=== PATIENT | female | born 1930 | race Caucasian/White ===

== ENCOUNTER 2019-08-02 08:23 | Emergency (ER) | payer MEDICARE, OTHER ==
--- NOTE | 2019-08-02 09:09 | RADIOLOGY REPORT (SQ) ---
EXAM DESCRIPTION: KNEE RIGHT 4 VIEWS COMPLETED DATE/TIME: 08/02/2019 8:51 am REASON FOR STUDY: fall; pain with ambulating COMPARISON: None. NUMBER OF VIEWS: Four views. TECHNIQUE: AP, lateral, and both oblique radiographic images acquired of the right knee. LIMITATIONS: None. FINDINGS: MINERALIZATION: Normal. BONES: No acute fracture dislocation. 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 JOINT: Joint space narrowing in all compartments with calcification present consistent with CPPD. SOFT TISSUES: No soft tissue swelling. No radio-opaque foreign body. OTHER: No other significant finding. IMPRESSION: 1. 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 Chondrosarcoma cannot be excluded but is thought to be less likely. 2. 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 TECHNICAL DOCUMENTATION: JOB ID: [id number] [employer]- All Rights Reserved Reading location - IP/workstation name: [email or web address]
--- NOTE | 2019-08-02 09:18 | ER Document Report ---
ED General - General Chief Complaint: Fall Stated Complaint: FALL/LEG PAIN Time Seen by Provider: 08/02/19 08:53 Primary Care Provider: BASSEM CHAMBERS JR, MD [Primary Care Provider] - Follow up in 3-5 days Notes: Patient is an 89-year-old female who presents to the emergency department with a chief complaint of right knee pain. She fell last night around 1900. She states that she was getting up from the couch to get her nightgown on and normally she gets help from her family, but she thought she could do with her own. She ended up going to sit back down and the chair was too low and she lost her balance and fell on her right knee. Denies any shortness of breath, difficulty breathing, urinary symptoms, abdominal pain or any other symptoms. Patient saw her primary care provider and had urinalysis done yesterday. It was also sent for culture. Denies hitting her head, denies any paresthesias. - Related Data Allergies/Adverse Reactions: ondansetron [From Zofran] Allergy (Mild, Verified 08/02/19 12:03) Past Medical History - General Information source: Patient, Relative - Social History Smoking Status: Never Smoker Family History: Reviewed & Not Pertinent Patient has suicidal ideation: No Patient has homicidal ideation: No - Past Medical History Cardiac Medical History: Reports: Hx Hypercholesterolemia, Hx Hypertension Review of Systems - Review of Systems Notes: REVIEW OF SYSTEMS: CONSTITUTIONAL : Denies recent illness. Denies recent unintentional weight loss. Denies fever, chills, or sweats. EENT: Denies eye, ear, throat, or mouth pain, discharge, or symptoms. Denies nasal or sinus congestion. CARDIOVASCULAR: Denies chest pain. RESPIRATORY: Denies shortness of breath, cough, congestion, difficulty breathing, or wheezing. GASTROINTESTINAL: Denies nausea, vomiting, and diarrhea. Denies abdominal pain. Denies constipation. GENITOURINARY: Denies difficulty urinating, burning, blood in urine, urgency or frequency. MUSCULOSKELETAL: See HPI. SKIN: Denies rash, itchiness, or lesions HEMATOLOGIC : Denies easy bruising or bleeding. LYMPHATIC: Denies swollen, painful, enlarged glands. NEUROLOGICAL: Denies no numbness or tingling denies weakness. Denies headache. Denies altered mental status. Denies alteration in speech. PSYCHIATRIC: Denies stress, anxiety, alteration in sleep patterns, or depression. All other systems reviewed and negative. Physical Exam - Vital signs Vitals: Temp Pulse Resp BP Pulse Ox 97.8 F 89 16 148/101 H 97 08/02/19 08:23 08/02/19 08:23 08/02/19 08:23 08/02/19 08:23 08/02/19 08:23 - Notes Notes: PHYSICAL EXAMINATION: GENERAL: Appears well, healthy, well-nourished, no acute distress. HEAD: Normocephalic, atraumatic. EYES: PERRL, conjunctiva normal, all extraocular movements intact, sclera nonicteric ENT: Moist mucous membranes. NECK: Supple, no noticeable swelling, redness, rash. Normal range of motion. LUNGS: Equal breath sounds bilaterally and clear to auscultation. No wheezes rales or rhonchi. CARDIOVASCULAR: S1-S2, regular rate, regular rhythm. Radial pulses 2+, normal. ABDOMEN: Normoactive bowel sounds. Soft, nontender, no guarding, no rebound tenderness, and no masses palpated. EXTREMITIES: Decreased range of motion to right knee. Right knee tenderness. PSYCH: Normal mood, normal affect. SKIN: Warm, dry. No rash, lesions, ulcerations noted. Normal skin turgor. Course - Re-evaluation Re-evalutation: 08/02/19 11:37 There is no acute fracture noted. I had Dr. Keller spoke with the patient and her daughter. He agrees that there is no need for an MRI at this time. I also had COTY Bennett, case coordinator evaluate the patient as far as home needs go and physical therapy will be set up for her tomorrow. I will order her a walker. Patient will also be transferred to her house. No vascular compromise noted. Follow-up precautions were given. Verbal discharge instructions were given to the patient. They verbalized understanding. They are stable for discharge. - Vital Signs Vital signs: Temp Pulse Resp BP Pulse Ox 98.4 F 95 16 181/91 H 96 08/02/19 14:43 08/02/19 14:43 08/02/19 14:43 08/02/19 14:43 08/02/19 14:43 Discharge - Discharge Clinical Impression: Fall Qualifiers: Encounter type: initial encounter Qualified Code(s): W19.XXXA - Unspecified fall, initial encounter Left knee pain Qualifiers: Chronicity: acute Qualified Code(s): M25.562 - Pain in left knee Condition: Stable Disposition: HOME, SELF-CARE Additional Instructions: You were seen today in the emergency department for right knee pain after a fall. There is no fracture at this time. Please follow-up with your primary care doctor in regards to this visit. You will also have physical therapy set up for you. They should see you tomorrow. You are also being sent home with a prescription for a walker. Please use the walker and bear weight as tolerated. You can take your tramadol and from home for pain. Make sure you take it every 6 hours for the next few days to help with your pain. Referrals: TRISH BAXTER,BASSEM Stephens MD [Primary Care Provider] - Follow up in 3-5 days
[2019-08-02] MEDS ORDERED: TRAMADOL HCL 50 MG TABLET PO ONE (10:03)
[2019-08-02] MEDS ORDERED: ONDANSETRON HCL INJ/PF 4 MG/2 ML SDV IV ONE (11:43)
[2019-08-02 14:51] VITALS: BP 181/91
[2019-08-02] MEDS ORDERED: LOSARTAN POTASSIUM 50 MG TABLET PO ONE (14:58)
[2019-08-03] MEDS ORDERED: ACETAMINOPHEN 325 MG TABLET PO PRN (17:40)
[2019-08-03] MEDS ORDERED: ZOLPIDEM TARTRATE 5 MG TABLET PO PRN (17:40)
[2019-08-03] MEDS ORDERED: ONDANSETRON 4 MG TAB.RAPDIS PO PRN (17:40)
[2019-08-03] MEDS ORDERED: NORMAL SALINE 1000 ML 1,000 ML IV PRN (17:40)
[2019-08-03] MEDS ORDERED: OXYCODONE-ACETAMINOPHEN 5-325 MG TABLET PO PRN (17:40)
[2019-08-03] MEDS ORDERED: ONDANSETRON HCL INJ/PF 4 MG/2 ML SDV IV PRN (17:40)
[2019-08-03] MEDS ORDERED: ENOXAPARIN SODIUM INJ 30 MG/0.3 ML DISP.SYRIN SUBCUT SCH (18:00)
[2019-08-03] MEDS ORDERED: PROMETHAZINE HCL INJ 25 MG/1 ML VIAL IV PRN (18:00)
[2019-08-03 18:32] LABS: ALBUMIN 3.4 g/dL (3.5-5.0); ALKALINE PHOSPHATASE 74 U/L (38-126); ANION GAP 10 (5-19); ASPARTATE AMINO TRANSFERASE 23 U/L (14-36); BILIRUBIN,DIRECT 0.2 mg/dL (0.0-0.4); BILIRUBIN,TOTAL 1.4 mg/dL (0.2-1.3); BLOOD UREA NITROGEN 15 mg/dL (7-20); CALCIUM 9.7 mg/dL (8.4-10.2); CARBON DIOXIDE 24 mmol/L (22-30); CHLORIDE 99 mmol/L (98-107); GLUCOSE 89 mg/dL (75-110); POTASSIUM 4.3 mmol/L (3.6-5.0); TOTAL PROTEIN 6.4 g/dL (6.3-8.2)
[2019-08-03] MEDS ORDERED: LOSARTAN POTASSIUM 50 MG TABLET PO SCH (22:00)
[2019-08-03] MEDS ORDERED: BUPROPION HCL 100 MG TABLET PO SCH (22:00)
[2019-08-03] MEDS ORDERED: FAMOTIDINE 20 MG TABLET PO SCH (22:00)
[2019-08-04 04:54] LABS: ABSOLUTE BASOPHILS # (AUTO) 0.1 10^3/uL (0.0-0.2); ABSOLUTE EOSINOPHILS # (AUTO) 0.5 10^3/uL (0.0-0.6); ABSOLUTE LYMPHOCYTES (AUTO) 1.1 10^3/uL (0.5-4.7); ABSOLUTE MONOCYTES (AUTO) 1.1 10^3/uL (0.1-1.4); BASOPHILS % (AUTO) 0.8 % (0-2); EOSINOPHILS % (AUTO) 6.1 % (0-6); HEMATOCRIT 42.4 % (36.0-47.0); HEMOGLOBIN 14.5 g/dL (12.0-15.5); LYMPHOCYTES % (AUTO) 12.4 % (13-45); MEAN CORPUSCULAR HGB CONC 34.3 g/dL (32.0-36.0); MEAN CORPUSCULAR VOLUME 96 fl (80-97); MONOCYTES % (AUTO) 12.3 % (3-13); PLATELET COUNT 212 10^3/uL (150-450); RED BLOOD COUNT 4.41 10^6/uL (3.72-5.28); RED CELL DISTRIBUTION WIDTH 12.7 % (11.5-14.0); SEGMENTED NEUTROPHILS % (AUTO) 68.4 % (42-78); TOTAL CELLS COUNTED % (AUTO) 100 %; WHITE BLOOD COUNT 8.8 10^3/uL (4.0-10.5)
== END 2019-08-02 15:13 | disposition home or self-care (01) ==
LOC: ER 08:23
DX: M25.561 Pain in right knee (principal); M25.562 Pain in left knee; W19.XXXA Unspecified fall, initial encounter; Y93.89 Activity, other specified; I10 Essential (primary) hypertension; Z88.8 Allergy status to other drugs, medicaments and biological substances
CPT/HCPCS: 99284; 96374; 36415; 83735; 84443; 85025; 85730; 87070; 73564; L1830; A9270 ×2; J2405

== ENCOUNTER 2019-08-03 15:21 | Inpatient (IN) | payer MEDICARE, OTHER ==
--- NOTE | 2019-08-03 16:59 | RADIOLOGY REPORT (SQ) ---
EXAM DESCRIPTION: HIP RIGHT AP/LATERAL COMPLETED DATE/TIME: 08/03/2019 4:06 pm REASON FOR STUDY: Fall; unable to ambulate COMPARISON: 01/30/2009 NUMBER OF VIEWS: Two views. TECHNIQUE: AP pelvis and additional frog-leg view of the right hip. LIMITATIONS: None. FINDINGS: MINERALIZATION: Normal. RIGHT HIP: Sub capital right hip fracture with resulting varus deformity. LEFT HIP: No fracture or dislocation. No worrisome bone lesions. PUBIS AND ISCHIUM: No fracture. PELVIS: No fracture. SACRUM: No fracture or dislocation. No worrisome bone lesions. LOWER LUMBAR SPINE: No fracture or dislocation. No worrisome bone lesions. No significant disc disea se. SOFT TISSUES: Possible right inguinal hernia. OTHER: No other significant finding. IMPRESSION: Subcapital right hip fracture. TECHNICAL DOCUMENTATION: JOB ID: [id number] [employer]- All Rights Reserved Reading location - IP/workstation name: [email or web address]
--- NOTE | 2019-08-03 17:15 | ER Document Report ---
ED General - General Chief Complaint: Hip Pain Stated Complaint: FALL/HIP PAIN Time Seen by Provider: 08/03/19 16:03 Notes: 89-year-old female presents emergency department stating that she fell yesterday and landed directly on her right knee, had negative knee x-rays here and was discharged home in a knee immobilizer. Daughter states that the patient has been unable to ambulate or even sit up since then due to continuing pain. Has severe pain when bending at the hip. 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 TRAVEL OUTSIDE OF THE [place] IN LAST 30 DAYS: No - Related Data Allergies/Adverse Reactions: ondansetron [From Zofran] Allergy (Mild, Verified 08/02/19 12:03) Past Medical History - General Information source: Patient, Relative - Social History Smoking Status: Never Smoker Chew tobacco use (# tins/day): No Frequency of alcohol use: None Drug Abuse: None Family History: Reviewed & Not Pertinent Patient has suicidal ideation: No Patient has homicidal ideation: No - Past Medical History Cardiac Medical History: Reports: Hx Hypercholesterolemia, Hx Hypertension Past Surgical History: Reports: Hx Genitourinary Surgery - bladder tuck Review of Systems - Review of Systems Constitutional: No symptoms reported Musculoskeletal: See HPI -: Yes All other systems reviewed and negative Physical Exam - Vital signs Vitals: Resp BP Pulse Ox 12 137/72 H 96 08/03/19 15:31 08/03/19 15:31 08/03/19 15:31 Interpretation: Normal - Notes Notes: GENERAL: Alert, interacts well. No acute distress. HEAD: Normocephalic, atraumatic EYES: Pupils equal, round and reactive to light, extraocular movements intact. ENT: Oral mucosa moist, tongue midline. NECK: Full range of motion, supple, trachea midline. LUNGS: Clear to auscultation bilaterally, no wheezes, rales or rhonchi, no respiratory distress. HEART: Regular rate and rhythm, no murmurs, gallops, rubs. ABDOMEN: Soft, nontender, nondistended, bowel sounds present in all 4 quadrants. EXTREMITIES: able to wiggle toes, complains of pain with flexion of knee and any movement of the right hip, right hip is not directly tender to palpation, no edema, radial and dorsalis pedis pulses 2/4 bilaterally. No cyanosis. NEUROLOGICAL: Alert and oriented x3, normal speech, sensation intact to the bilateral feet. PSYCH: Normal mood, normal affect. SKIN: Warm, Dry, normal turgor, medial ecchymoses noted to the right knee. Course - Re-evaluation Re-evalutation: 08/03/19 17:15 X-ray shows subcapital fracture of the right hip. Discussed with Dr. Russo who states that he will do the surgery tomorrow when she is medically cleared, discussed with Dr. Marie who would like blood work back before he accepts to his service. Currently trying to update Dr. Gibbs, her PCP, per patient request. 08/03/19 17:20 Dr. Gibbs will fax a copy of her latest office visit. 08/03/19 17:[address] Oliva the anesthesiologist monkey trainer, states that they do not have the staffing to do a nerve block for her right now. 08/03/19 18:03 Dr. Marie/Newton Chua have accepted the the patient and Newton Chua has already e valuated the patient. - Vital Signs Vital signs: Temp Pulse Resp BP Pulse Ox 98.4 F 13 147/81 H 94 08/03/19 15:40 08/03/19 17:02 08/03/19 17:02 08/03/19 17:02 - Laboratory Result Diagrams: 08/03/19 17:07 08/03/19 17:07 - EKG Interpretation by Me Additional EKG results interpreted by me: 08/03/19 18:04 EKG shows sinus rhythm at a rate of 88, right bundle branch block, left posterior fascicular block, no STEMI per my interpretation. Discharge - Discharge Clinical Impression: Closed right hip fracture Qualifiers: Encounter type: initial encounter Qualified Code(s): S72.001A - Fracture of unspecified part of neck of right femur, initial encounter for closed fracture Condition: Stable Disposition: ADMITTED INPATIENT Admitting Provider: Cynthia (Hospitalist) Unit Admitted: Surgical Floor
[2019-08-03 17:18] LABS: ABSOLUTE BASOPHILS # (AUTO) 0.1 10^3/uL (0.0-0.2); ABSOLUTE EOSINOPHILS # (AUTO) 0.5 10^3/uL (0.0-0.6); ABSOLUTE LYMPHOCYTES (AUTO) 1.2 10^3/uL (0.5-4.7); ABSOLUTE MONOCYTES (AUTO) 1.1 10^3/uL (0.1-1.4); ABSOLUTE NEUT (AUTO) 5.7 10^3/uL (1.7-8.2); BASOPHILS % (AUTO) 0.8 % (0-2); EOSINOPHILS % (AUTO) 5.9 % (0-6); HEMATOCRIT 44.6 % (36.0-47.0); HEMOGLOBIN 15.1 g/dL (12.0-15.5); LYMPHOCYTES % (AUTO) 13.6 % (13-45); MEAN CORPUSCULAR HEMOGLOBIN 32.7 pg (27.0-33.4); MEAN CORPUSCULAR HGB CONC 33.9 g/dL (32.0-36.0); MEAN CORPUSCULAR VOLUME 97 fl (80-97); MONOCYTES % (AUTO) 12.5 % (3-13); PLATELET COUNT 220 10^3/uL (150-450); RED BLOOD COUNT 4.62 10^6/uL (3.72-5.28); RED CELL DISTRIBUTION WIDTH 12.8 % (11.5-14.0); SEGMENTED NEUTROPHILS % (AUTO) 67.2 % (42-78); TOTAL CELLS COUNTED % (AUTO) 100 %; WHITE BLOOD COUNT 8.5 10^3/uL (4.0-10.5)
[2019-08-03 17:32] LABS: INTERNATIONAL RATION (INR) 1.02; PROTHROMBIN TIME 13.5 SEC (11.4-15.4)
[2019-08-03 17:33] LABS: PARTIAL THROMBOPLASTIN TIME 34.4 SEC (23.5-35.8)
[2019-08-03] MEDS ORDERED: ACETAMINOPHEN 325 MG TABLET PO PRN (18:17)
[2019-08-03] MEDS ORDERED: ZOLPIDEM TARTRATE 5 MG TABLET PO PRN (18:17)
[2019-08-03] MEDS ORDERED: PROMETHAZINE HCL INJ 25 MG/1 ML VIAL IV PRN (18:17)
--- NOTE | 2019-08-03 18:17 | PDOC H&P ---
History of Present Illness Admission Date/PCP: BASSEM CHAMBERS JR, MD 08/03/2019 admitted for right hip fracture History of Present Illness: ROYCE PIERCE is a 89 year old female who was admitted through the emergency room today on 08/03/2019 for right subcapital hip fracture. The history begins Wednesday night around 6 PM when the patient tripped and fell fracturing her right hip. According to the daughter EMS came in evidently after some discussion did not feel like the patient needed to be transported to the ER the patient's daughter stated that yesterday morning when she got up her right hip was still hurting her severely so she did come to the emergency room and they treated her for right leg pain but no x-rays were done of the right hip. I sent her home with a right leg splint.. Last night she was hurting so bad she did not have adequate pain medication so her primary care provider Dr. Ana burgos got her some Percocet. The daughter states that she took 1 about every 4-6 hours with good relief of her right hip pain. Morning her right hip was still hurting so bad that they came back to the emergency room and today's x-ray of the right hip shows a subcapital right hip fracture. Patient's other medical conditions include hypertension, she has what sounds to be a reducible right inguinal hernia, either anxiety or depression, and hyperlipidemia. Patient has had 5 vaginal deliveries in her lifetime, was living alone up until recently but now has moved in with her daughter and had a good quality of life. Surgery plans on repairing the right hip tomorrow they will discuss risk and benefits with the patient and family. I did tell the patient and her daughter that at at the age of 89 she does carry a higher risk of for general anesthesia. They were aware of this and had their questions answered. Past Medical History Cardiac Medical History: Reports: Hyperlipidema, Hypertension Pulmonary Medical History: Reports: None Neurological Medical History: Reports: Other - Chronic right foot drop for many years GI Medical History: Reports: Other - Reducible abdominal inguinal hernia Social History Smoking Status: Never Smoker - Advance Directive Resuscitation Status: Full Code Family History Family History: Reviewed & Not Pertinent Parental Family History Reviewed: No Children Family History Reviewed: No Sibling(s) Family History Reviewed.: No Medication/Allergy Home Medications: Bupropion HCl [Bupropion Xl] 150 mg PO Q12 10/02/19 Losartan Potassium 100 mg PO DAILY 08/02/19 Rosuvastatin Calcium 20 mg PO QHS 08/02/19 Zolpidem Tartrate [Ambien 5 mg Tablet] 5 mg PO HSP PRN MDD 10 MG 08/02/19 Allergies/Adverse Reactions: ondansetron [From Zofran] Allergy (Mild, Verified 08/02/19 12:03) Review of Systems Constitutional: ABSENT: chills, fever(s), headache(s), weight gain, weight loss Eyes: ABSENT: visual disturbances Cardiovascular: ABSENT: chest pain, dyspnea on exertion, edema, orthropnea, palpitations Respiratory: ABSENT: cough, hemoptysis Gastrointestinal: PRESENT: other - Reducible abdominal right inguinal hernia Neurological: ABSENT: abnormal gait, abnormal speech, confusion, dizziness, focal weakness, syncope Psychiatric: ABSENT: anxiety, depression, homidical ideation, suicidal ideation Physical Exam Vital Signs: Temp Pulse Resp BP Pulse Ox 98.4 F 13 147/81 H 94 08/03/19 15:40 08/03/19 17:02 08/03/19 17:02 08/03/19 17:02 Intake & Output 08/02/19 08/03/19 08/04/19 06:59 06:59 06:59 Weight 54.3 kg General appearance: PRESENT: no acute distress, well-developed, well-nourished, other - At bedrest patient has no pain Respiratory exam: PRESENT: clear to auscultation lisa. ABSENT: rales, rhonchi, wheezes Cardiovascular exam: PRESENT: RRR. ABSENT: diastolic murmur, rubs, systolic murmur GI/Abdominal exam: PRESENT: normal bowel sounds, soft. ABSENT: distended, guarding, mass, organolmegaly, rebound, tenderness Musculoskeletal exam: PRESENT: other - Right leg is shorter than the left leg Neurological exam: PRESENT: alert, awake, oriented to person, oriented to place, oriented to time, oriented to situation, CN II-XII grossly intact, other - Patient has a right foot drop that is chronic. ABSENT: motor sensory deficit Psychiatric exam: PRESENT: appropriate affect, normal mood, other - Very pleasant. ABSENT: homicidal ideation, suicidal ideation Results Laboratory Results: 08/03/19 17:07 08/03/19 17:07 08/03/19 08/03/19 17:07 17:07 WBC 8.5 RBC 4.62 Hgb 15.1 Hct 44.6 MCV 97 MCH 32.7 MCHC 33.9 RDW 12.8 Plt Count 220 Seg Neutrophils % 67.2 Sodium Cancelled Potassium Cancelled Chloride Cancelled Carbon Dioxide Cancelled Anion Gap Cancelled BUN Cancelled Creatinine Cancelled Est GFR ( Amer) Cancelled Est GFR (Non-Af Amer) Cancelled Glucose Cancelled Calcium Cancelled Total Bilirubin Cancelled AST Cancelled Alkaline Phosphatase Cancelled Total Protein Cancelled Albumin Cancelled Impressions: Hip/Pelvis X-Ray 08/03/19 00:00 IMPRESSION: Subcapital right hip fracture. Assessment and Plan - Diagnosis (1) Subcapital fracture of right hip Is this a current diagnosis for this admission?: Yes (2) Hypertension Is this a current diagnosis for this admission?: Yes (3) Hyperlipidemia Is this a current diagnosis for this admission?: Yes (4) Right inguinal hernia Is this a current diagnosis for this admission?: Yes (5) Fall Qualifiers: Encounter type: initial encounter Qualified Code(s): W19.XXXA - Unspecified fall, initial encounter Is this a current diagnosis for this admission?: Yes - Plan Summary Summary: 08/03/2019 She will be seen by orthopedic surgery and is tentatively plan for repair of right hip fracture tomorrow morning.. With the information I have so far patient appears to be medically clear for general anesthesia. Patient has a right bundle branch block on her EKG with no previous EKGs to compare to. Patient denies previous cardiac history. We will follow the patient medically with orthopedics. - Time Time Spent with patient: 35 or more minutes
--- NOTE | 2019-08-03 19:02 | RADIOLOGY REPORT (SQ) ---
EXAM DESCRIPTION: CHEST SINGLE VIEW COMPLETED DATE/TIME: 08/03/2019 6:22 pm REASON FOR STUDY: preop COMPARISON: None. EXAM PARAMETERS: NUMBER OF VIEWS: One view. TECHNIQUE: Single frontal radiographic view of the chest acquired. RADIATION DOSE: NA LIMITATIONS: None. FINDINGS: LUNGS AND PLEURA: No opacities, masses or pneumothorax. No pleural effusion. MEDIASTINUM AND HILAR STRUCTURES: No masses. Contour normal. HEART AND VASCULAR STRUCTURES: Heart normal in size. Normal vasculature. BONES: No acute findings. HARDWARE: None in the chest. OTHER: No other significant finding. IMPRESSION: NO ACUTE RADIOGRAPHIC FINDING IN THE CHEST. TECHNICAL DOCUMENTATION: JOB ID: [id number] [employer]- All Rights Reserved Reading location - IP/workstation name: [email or web address]
[2019-08-03] MEDS: ENOXAPARIN SODIUM INJ 30 MG/0.3 ML DISP.SYRIN SUBCUT SCH (19:43)
[2019-08-03] MEDS: OXYCODONE-ACETAMINOPHEN 5-325 MG TABLET PO PRN (19:56)
[2019-08-03] MEDS: LOSARTAN POTASSIUM 50 MG TABLET PO SCH (21:47)
[2019-08-03] MEDS: FAMOTIDINE 20 MG TABLET PO SCH (21:48)
[2019-08-03] MEDS: NORMAL SALINE 1000 ML 1,000 ML IV PRN (21:48)
[2019-08-03] MEDS: BUPROPION HCL 100 MG TABLET PO SCH (21:48)
--- NOTE | 2019-08-03 21:50 | EKG REPORT ---
SEVERITY:- ABNORMAL ECG - SINUS RHYTHM RBBB AND LPFB : Confirmed by: Eleanor Salmeron MD 03-Aug-2019 21:49:27
[2019-08-03] MEDS ORDERED: FAMOTIDINE 20 MG TABLET PO SCH (22:00)
[2019-08-04 05:08] LABS: ALBUMIN 3.5 g/dL (3.5-5.0); ALKALINE PHOSPHATASE 76 U/L (38-126); ANION GAP 11 (5-19); ASPARTATE AMINO TRANSFERASE 22 U/L (14-36); BILIRUBIN,DIRECT 0.2 mg/dL (0.0-0.4); BILIRUBIN,TOTAL 1.5 mg/dL (0.2-1.3); BLOOD UREA NITROGEN 16 mg/dL (7-20); CALCIUM 9.6 mg/dL (8.4-10.2); CARBON DIOXIDE 23 mmol/L (22-30); CHLORIDE 100 mmol/L (98-107); GLUCOSE 78 mg/dL (75-110); POTASSIUM 4.2 mmol/L (3.6-5.0); TOTAL PROTEIN 6.4 g/dL (6.3-8.2)
[2019-08-04] MEDS: OXYCODONE-ACETAMINOPHEN 5-325 MG TABLET PO PRN ×3 (07:42→22:32)
[2019-08-04] MEDS ORDERED: PHENYLEPHRINE HCL INJ/PF 10 MG/1 ML SDV ONE (10:13)
--- NOTE | 2019-08-04 10:41 | XCELERA REPORT ---
[address] [address] Transthoracic Echocardiogram Report Name: ROYCE PIERCE Age: 89 yrs Gender: Female : 1930 Patient Status: Inpatient Patient Location: [facility]^A Study Date: 08/04/2019 09:04 AM Height: 60 in Weight: 117 lb BSA: 1.5 m2 Procedure: A complete two-dimensional transthoracic echocardiogram was performed (2D, M-mode, spectral and color flow Doppler). The study was technically adequate with some images being suboptimal in quality. Reason For Study: preop Ordering Physician: GIANA BARNETT Performed By: Armando Galeano Interpretation Summary The left ventricular ejection fraction is normal. There is mild concentric left ventricular hypertrophy. The left ventricle is grossly normal size. Doppler measurements suggest pseudonormalized left ventricular relaxation, which is associated with grade II/IV or mild to moderate diastolic dysfunction Wall motion cannot be accurately commented on, but no definite regional wall motion abnormalities noted. The right ventricular systolic function is normal. The left atrium is mildly dilated. The right atrium is normal in size There is a trace amount of mitral regurgitation There is no mitral valve stenosis. There is no aortic valve stenosis No aortic regurgitation is present. There is a trace or physiologic amount of tricuspid regurgitation Tricuspid regurgitation jet envelope not well defined to measure RV systolic pressure accurately. There is no pericardial effusion. MMode/2D Measurements & Calculations RVDd: 3.6 cm LVIDd: 4.0 cm FS: 33.6 % Ao root diam: 2.6 cm IVSd: 0.94 cm LVIDs: 2.6 cm EDV(Teich): 68.2 ml Ao root area: 5.3 cm2 LVPWd: 0.90 cm ESV(Teich): 25.3 ml LA dimension: 2.7 cm EF(Teich): 62.9 % Doppler Measurements & Calculations MV E max maria esther: MV P1/2t max maria esther: Ao V2 max: LV V1 max P.7 cm/sec 67.3 cm/sec 138.5 cm/sec 4.9 mmHg MV A max maria esther: MV P1/2t: 61.9 msec Ao max PG: LV V1 max: 108.1 cm/sec MVA(P1/2t): 3.6 cm2 7.7 mmHg 111.1 cm/sec MV E/A: 0.58 MV dec slope: LV dP/dt: 4544 mmHg/s 318.6 cm/sec2 MV dec time: 0.16 sec PA V2 max: PI end-d maria esther: TR max maria esther: MV P1/2t-pr_phl: 95.3 cm/sec 77.6 cm/sec 301.6 cm/sec 61.9 msec PA max P.6 mmHg TR max P.4 mmHg Left Ventricle The left ventricle is grossly normal size. There is mild concentric left ventricular hypertrophy. The left ventricular ejection fraction is normal. Doppler measurements suggest pseudonormalized left ventricular relaxation, which is associated with grade II/IV or mild to moderate diastolic dysfunction. Wall motion cannot be accurately commented on, but no definite regional wall motion abnormalities noted. Right Ventricle The right ventricle is grossly normal size. There is normal right ventricular wall thickness. The right ventricular systolic function is normal. Atria The right atrium is normal in size. The left atrium is mildly dilated. Interarterial septum not well visualized and not well dopplered. Cannot comment on ASD/PFO presence. Mitral Valve The mitral valve leaflets are sclerotic, but show no functional abnormalities. There is no mitral valve stenosis. There is a trace amount of mitral regurgitation. Aortic Valve The aortic valve is not well visualized secondary to technical limitations. The aortic valve opens well. There is no aortic valve stenosis. No aortic regurgitation is present. Tricuspid Valve The tricuspid valve is not well visualized, but is grossly normal. There is no tricuspid stenosis. There is a trace or physiologic amount of tricuspid regurgitation. Tricuspid regurgitation jet envelope not well defined to measure RV systolic pressure accurately. Pulmonic Valve The pulmonic valve is not well visualized. Great Vessels The aortic root is not well visualized but is probably normal size. The inferior vena cava appeared normal and decreased > 50% with respiration (RAP 5-10 mmHg). Effusions There is no pericardial effusion. : GIANA BARNETT Shyamal
[2019-08-04] MEDS: LOSARTAN POTASSIUM 50 MG TABLET PO SCH ×2 (10:43→22:32)
[2019-08-04] MEDS: DOCUSATE SODIUM 100 MG CAPSULE PO SCH (10:43)
[2019-08-04] MEDS: ENOXAPARIN SODIUM INJ 30 MG/0.3 ML DISP.SYRIN SUBCUT SCH (10:43)
[2019-08-04 11:04] LABS: APPEARANCE,URINE CLOUDY; BILIRUBIN,URINE NEGATIVE (NEGATIVE); COLOR,URINE AMBER; GLUCOSE, URINE NEGATIVE (NEGATIVE); KETONES,URINE 20 mg/dL (NEGATIVE); LEUKOCYTE ESTERASE,URINE LARGE (NEGATIVE); NITRITE,URINE NEGATIVE (NEGATIVE); PROTEIN,URINE 30 mg/dL (NEGATIVE); URINE SPECIFIC GRAVITY 1.023
--- NOTE | 2019-08-04 11:07 | PDOC PROGRESS REPORT ---
Subjective Progress Note for:: 08/04/19 Subjective:: 08/04/19 patient was admitted yesterday with a fractured right hip patient is medically stable. Patient is for orthopedic repair today fractured right hip Echocardiogram done today shows no significant cardiac disease normal ejection fracture. Patient will probably have spinal anesthesia. Reason For Visit: SUBCAPITAL RIGHT HIP FRACTURE, HYPERTENSION, Physical Exam Vital Signs: Temp Pulse Resp BP Pulse Ox 98.2 F 95 16 143/89 H 93 08/04/19 08:02 08/04/19 08:02 08/04/19 08:02 08/04/19 08:02 08/04/19 08:02 Intake & Output 08/03/19 08/04/19 08/05/19 06:59 06:59 06:59 Intake Total 110 Output Total 220 Balance -110 Weight 53.2 kg General appearance: PRESENT: no acute distress Respiratory exam: PRESENT: clear to auscultation lisa. ABSENT: rales, rhonchi, wheezes Cardiovascular exam: PRESENT: RRR. 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 ABSENT: motor sensory deficit Psychiatric exam: PRESENT: appropriate affect, normal mood, other - Very pleasant. Good pain management on Percocet. ABSENT: homicidal ideation, suicidal ideation Results Laboratory Results: 08/03/19 17:07 08/04/19 03:45 08/03/19 08/03/19 08/04/19 17:07 17:07 03:45 WBC 8.5 RBC 4.62 Hgb 15.1 Hct 44.6 MCV 97 MCH 32.7 MCHC 33.9 RDW 12.8 Plt Count 220 Seg Neutrophils % 67.2 Sodium Cancelled 133.8 L Potassium Cancelled 4.2 Chloride Cancelled 100 Carbon Dioxide Cancelled 23 Anion Gap Cancelled 11 BUN Cancelled 16 Creatinine Cancelled 0.84 Est GFR ( Amer) Cancelled > 60 Est GFR (Non-Af Amer) Cancelled Glucose Cancelled 78 Calcium Cancelled 9.6 Total Bilirubin Cancelled 1.5 H AST Cancelled 22 Alkaline Phosphatase Cancelled 76 Total Protein Cancelled 6.4 Albumin Cancelled 3.5 Impressions: Chest X-Ray 08/03/19 00:00 IMPRESSION: NO ACUTE RADIOGRAPHIC FINDING IN THE CHEST. Hip/Pelvis X-Ray 08/03/19 00:00 IMPRESSION: Subcapital right hip fracture. Assessment and Plan - Diagnosis (1) Subcapital fracture of right hip Is this a current diagnosis for this admission?: Yes (2) Hypertension Is this a current diagnosis for this admission?: Yes (3) Hyperlipidemia Is this a current diagnosis for this admission?: Yes (4) Right inguinal hernia Is this a current diagnosis for this admission?: Yes (5) Fall Qualifiers: Encounter type: initial encounter Qualified Code(s): W19.XXXA - Unspecified fall, initial encounter Is this a current diagnosis for this admission?: Yes - Plan Summary Summary: 08/03/2019 She will be seen by orthopedic surgery and is tentatively plan for repair of right hip fracture tomorrow morning.. With the information I have so far patient appears to be medically clear for general anesthesia. Patient has a right bundle branch block on her EKG with no previous EKGs to compare to. Patient denies previous cardiac history. We will follow the patient medically with orthopedics. 08/04/2019 patient had a good night with adequate pain management on 1 Percocet only. Patient for repair of fractured right hip today around noon. Echocardiogram done this morning shows a normal ejection fracture and no significant cardiac disease - Time Time Spent with patient: 25-34 minutes
[2019-08-04] MEDS ORDERED: FENTANYL CITRATE INJ/PF 100 MCG/2 ML AMPUL ONE (12:11)
[2019-08-04] MEDS ORDERED: MIDAZOLAM 2 MG/2 ML INJ ONE (12:12)
[2019-08-04] MEDS ORDERED: LIDOCAINE 2% INJ (20 MG/ML) 20 ML MDV ONE (12:12)
[2019-08-04] MEDS ORDERED: PROPOFOL INJ 200 MG/20 ML VIAL IV ONE (12:12)
--- NOTE | 2019-08-04 12:17 | PDOC CONSULTATION ---
Consultation Consult Date: 08/04/19 Attending physician:: WALTER JIMENEZ Provider Consulted: ROSA PANIAGUA Consult reason:: Right hip displaced femoral neck fracture History of Present Illness Admission Date/PCP: 08/03/19 17:55 BASSEM CHAMBERS JR, MD History of Present Illness: ROYCE PIERCE is a 89 year old female who presented to the emergency department at [facility] with a displaced fracture of her right femoral neck. She had apparently fallen on Wednesday night and EMS had been called. EMS determined that she did not need transport to the hospital. She was unable to ambulate and the family brought the patient to the emergency depa rtment on Wednesday. The patient was complaining of discomfort in her knee and was sent home without evaluation of her hip. The patient had persistent pain and returned to the emergency department last evening. Radiographs demonstrated a displaced fracture of the femoral neck. Past Medical History Cardiac Medical History: Reports: Hyperlipidema, Hypertension Pulmonary Medical History: Reports: None EENT Medical History: Reports: Cataracts Neurological Medical History: Reports: Other - Chronic right foot drop for many years GI Medical History: Reports: Other - Reducible abdominal inguinal hernia Musculoskeltal Medical History: Reports: Gout Psychiatric Medical History: Reports: Depression Traumatic Medical History: Denies: None, Gunshot Wound, Pneumothorax, Stab Wound, Traumatic Brain Injury, Other Hematology: Denies: None, Anemia, Hemophilia, Sickle Cell Disease, Bleeding Tendencies, Heparin Induced Thrombocytopenia, Neutropenia, Other Infectious Medical History: Denies: None, Clostridium Difficile, Hepatitis B, Hepatitis C, HIV, Methicillin-Resistant Staph Aureus, Vancomycin-Resistant Enterococci, Other Past Surgical History Past Surgical History: Reports: Other - Cataract surgery Social History Smoking Status: Never Smoker Electronic Cigarette use?: No Frequency of Alcohol Use: None Hx Recreational Drug Use: No Drugs: None Hx Prescription Drug Abuse: No - Advance Directive Resuscitation Status: Full Code Family History Family History: Reviewed & Not Pertinent Parental Family History Reviewed: Yes Children Family History Reviewed: Yes Sibling(s) Family History Reviewed.: Yes Medication/Allergy Home Medications: Bupropion HCl [Bupropion Xl] 150 mg PO Q12 08/02/19 Losartan Potassium 100 mg PO DAILY 08/02/19 Zolpidem Tartrate [Ambien 5 mg Tablet] 5 mg PO HSP PRN MDD 10 MG 08/02/19 Mirabegron [Myrbetriq] 50 mg PO DAILY 08/03/19 Oxycodone HCl/Acetaminophen [Percocet 5-325 mg Tablet] 1 tab PO QIDP PRN 08/03/19 Tramadol HCl [Ultram 50 mg Tablet] 50 mg PO Q6HP PRN 08/03/19 Allergies/Adverse Reactions: ondansetron [From Zofran] Allergy (Mild, Verified 08/02/19 12:03) Review of Systems Constitutional: ABSENT: chills, fever(s), headache(s), weight gain, weight loss Eyes: ABSENT: visual disturbances Ears: ABSENT: hearing changes Cardiovascular: ABSENT: chest pain, dyspnea on exertion, edema, orthropnea, palpitations Respiratory: ABSENT: cough, hemoptysis Gastrointestinal: ABSENT: abdominal pain, constipation, diarrhea, hematemesis, hematochezia, nausea, vomiting Genitourinary: ABSENT: dysuria, hematuria Musculoskeletal: ABSENT: joint swelling Integumentary: ABSENT: rash, wounds Neurological: ABSENT: abnormal gait, abnormal speech, confusion, dizziness, focal weakness, syncope Psychiatric: ABSENT: anxiety, depression, homidical ideation, suicidal ideation Endocrine: ABSENT: cold intolerance, heat intolerance, polydipsia, polyuria Hematologic/Lymphatic: ABSENT: easy bleeding, easy bruising Physical Exam Vital Signs: Temp Pulse Resp BP Pulse Ox 98.2 F 95 16 143/89 H 93 08/04/19 08:02 08/04/19 08:02 08/04/19 08:02 08/04/19 08:02 08/04/19 08:02 Intake & Output 08/03/19 08/04/19 08/05/19 06:59 06:59 06:59 Intake Total 110 Output Total 220 Balance -110 Weight 53.2 kg General appearance: PRESENT: no acute distress, well-developed, well-nourished. ABSENT: cooperative, disheveled, hard of hearing, mild distress, morbidly obese, obese, severe distress, thin, other Head exam: ABSENT: atraumatic, normocephalic, other Eye exam: ABSENT: conjunctival injection, conjunctiva pink, conjunctiva pale, EOMI, nystagmus, periorbital swelling, PERRLA, scleral icterus, other Ear exam: ABSENT: bleeding, drainage, normal external ear exam, TM's normal bilaterally, other Mouth exam: ABSENT: dry mucosa, laceration, moist, neck supple, tongue midline, other Throat exam: ABSENT: post pharyngeal erythema, tonsillar erythema, tonsillar exudate, tonsillogmegaly, other Neck exam: ABSENT: carotid bruit, full ROM, JVD, lymphadenopathy, meningismus, tenderness, thyromegaly, tracheal deviation, tracheostomy, other Respiratory exam: ABSENT: accessory muscle use, chest wall tenderness, clear to auscultation lisa, crackles, decreased breath sounds, prolonged expiratory phas, rales, retraction, rhonchi, stridor, symmetrical, tachypnea, unlabored, wheezes, other Cardiovascular exam: ABSENT: bradycardia, clicks, diastolic murmur, gallop, irregular rhythm, RRR, rubs, +S1, +S2, systolic murmur, tachycardia, other Pulses: PRESENT: +1 pedal pulses bilateral Vascular exam: PRESENT: normal capillary refill GI/Abdominal exam: PRESENT: hernia Rectal exam: PRESENT: deferred Extremities exam: PRESENT: other - The right lower extremity is shortened and ex ternally rotated. There is discomfort with rotation of the hip. There is no discomfort at the knee. The patient is unable to dorsiflex the ankle. Sensation is intact to touch. 1+ dorsalis pedis and posterior tibial pulses. Neurological exam: PRESENT: alert, awake, oriented to person, oriented to place, oriented to time, oriented to situation, CN II-XII grossly intact. ABSENT: motor sensory deficit Psychiatric exam: PRESENT: appropriate affect, normal mood. ABSENT: homicidal ideation, suicidal ideation Skin exam: PRESENT: dry, intact, warm. ABSENT: cyanosis, rash Results Laboratory Results: 08/03/19 17:07 08/04/19 03:45 08/03/19 08/03/19 08/04/19 17:07 17:07 03:45 WBC 8.5 RBC 4.62 Hgb 15.1 Hct 44.6 MCV 97 MCH 32.7 MCHC 33.9 RDW 12.8 Plt Count 220 Seg Neutrophils % 67.2 Sodium Cancelled 133.8 L Potassium Cancelled 4.2 Chloride Cancelled 100 Carbon Dioxide Cancelled 23 Anion Gap Cancelled 11 BUN Cancelled 16 Creatinine Cancelled 0.84 Est GFR ( Amer) Cancelled > 60 Est GFR (Non-Af Amer) Cancelled Glucose Cancelled 78 Calcium Cancelled 9.6 Total Bilirubin Cancelled 1.5 H AST Cancelled 22 Alkaline Phosphatase Cancelled 76 Total Protein Cancelled 6.4 Albumin Cancelled 3.5 Urine Color Urine Appearance Urine pH Ur Specific [place] Urine Protein Urine Glucose (UA) Urine Ketones Urine Blood Urine Nitrite Ur Leukocyte Esterase Urine WBC (Auto) Urine RBC (Auto) 08/04/19 10:30 WBC RBC Hgb Hct MCV MCH MCHC RDW Plt Count Seg Neutrophils % Sodium Potassium Chloride Carbon Dioxide Anion Gap BUN Creatinine Est GFR ( Amer) Est GFR (Non-Af Amer) Glucose Calcium Total Bilirubin AST Alkaline Phosphatase Total Protein Albumin Urine Color FLOYD Urine Appearance CLOUDY Urine pH 5.0 Ur Specific [place] 1.023 Urine Protein 30 H Urine Glucose (UA) NEGATIVE Urine Ketones 20 H Urine Blood SMALL H Urine Nitrite NEGATIVE Ur Leukocyte Esterase LARGE H Urine WBC (Auto) 171 Urine RBC (Auto) 8 Impressions: Chest X-Ray 08/03/19 00:00 IMPRESSION: NO ACUTE RADIOGRAPHIC FINDING IN THE CHEST. Hip/Pelvis X-Ray 08/03/19 00:00 IMPRESSION: Subcapital right hip fracture. Assessment & Plan - Diagnosis (1) Subcapital fracture of right hip Qualifiers: Encounter type: initial encounter Fracture type: closed Qualified Code(s): S72.011A - Unspecified intracapsular fracture of right femur, initial encounter for closed fracture Is this a current diagnosis for this admission?: Yes - Time Time Spent: 50 to 70 Minutes Anticipated discharge: SNF Within: within 48 hours - Plan Summary Plan Summary: The patient has sustained a displaced fracture of the right femoral neck. I have discussed the findings with the patient and her daughter. I have recommended right hip hemiarthroplasty. Risks, benefits, and alternatives were discussed. Risks include the risk of with anesthesia, the risk of infection, the risk of deep venous thrombosis, the risk of fracture, the risk of dislocation, and the possible need for additional surgery. An opportunity for questions was provided. All questions were answered to the patient's and daughter's satisfaction. The patient expressed understanding and wishes to proceed.
[2019-08-04] MEDS ORDERED: BACITRACIN INJ 50,000 UNIT VIAL ONE (12:18)
[2019-08-04] MEDS ORDERED: CEFAZOLIN INJ 1 GM VIAL ONE (12:36)
[2019-08-04] MEDS ORDERED: FENTANYL CITRATE INJ/PF 100 MCG/2 ML AMPUL IV PRN ×3 (13:12)
[2019-08-04] MEDS ORDERED: PROMETHAZINE HCL INJ 25 MG/1 ML VIAL IV PRN ×2 (13:12)
[2019-08-04] MEDS ORDERED: OXYCODONE-ACETAMINOPHEN 5-325 MG TABLET PO PRN ×2 (13:12)
[2019-08-04] MEDS ORDERED: DIPHENHYDRAMINE HCL 50 MG/ML VIAL IV PRN (13:12)
[2019-08-04] MEDS ORDERED: MEPERIDINE HCL/PF INJ 25 MG/1 ML DISP.SYRIN IV PRN (13:12)
[2019-08-04] MEDS: BUPIVACAINE INJ/PF LIPOSOME/PF 266 MG/20 ML SDV ONE ×2 (13:20→14:25)
--- NOTE | 2019-08-04 15:08 | Operative Report ---
Operative Report DATE OF SURGERY: 08/04/19 PREOPERATIVE DIAGNOSIS: Right hip displaced femoral neck fracture POSTOPERATIVE DIAGNOSIS: Right hip displaced femoral neck fracture OPERATION: Right hip hemiarthroplasty SURGEON: ROSA PANIAGUA ANESTHESIA: Spinal COMPLICATIONS: None ESTIMATED BLOOD LOSS: 100 cc PROCEDURE: Indications for procedure Ms. Ferguson is a pleasant 89-year-old woman who sustained a fall at home resulting in a displaced fracture of the right femoral neck. Description of procedure: Following the induction of a spinal anesthetic and administration of 2 g of Ancef, the patient was positioned lateral on a pegboard. All bony prominences were padded. Axillary roll was placed. The right lower extremity was sterilely prepped with ChloraPrep and draped in standard fashion. Posterior approach to the hip was performed. Sharp incision was performed through skin with Bovie electrocautery through the subcutaneous tissue and fat. The gluteus pamela fascia was opened and Charnley retractor placed. The external rotators were taken sharply off the femoral neck with care taken to protect the gluteus medius and minimus. Femoral head was removed and sized. The box osteotome was employed to ensure lateral entry down the canal. Sequential broaching was performed to a size 4 prosthesis. Copious irrigation of the canal was performed and the prosthesis was impacted into position. Trial head neck was applied. The hip was quite stable and had a excellent range of motion with a 43 mm head with -4 offset. The trial implants were removed and the final implants were impacted into position. Additional irrigation was performed using pulsatile lavage. The hip was reduced and taken through a full range of motion demonstrating excellent stability. Additional copious irrigation was performed. The external rotators were reapproximated through bone of the greater trochanter using #1 Ethibond. Additional irrigation was performed. The fascia was reapproximated using #2 Vicryl. Additional irrigation was performed. The subcutaneous tissue was closed with 2-0 Vicryl. The skin was reapproximated with avani. The patient tolerated procedure well without complications and was brought to recovery room in stable condition. Implants: Accolade 2 size 4 stem Unitrax -4 mm neck Unitrax head component 43 mm
--- NOTE | 2019-08-04 15:41 | RADIOLOGY REPORT (SQ) ---
EXAM DESCRIPTION: HIP RIGHT AP/LATERAL COMPLETED DATE/TIME: 08/04/2019 3:31 pm REASON FOR STUDY: RT. HIP HEMIARTHROPLASTY COMPARISON: 08/03/2019 NUMBER OF VIEWS: Two view(s). TECHNIQUE: Digital radiographic images of the right hip post-procedure. LIMITATIONS: None. FINDINGS: BONES: No worrisome or unexpected findings post-procedure. DEVICE: Total hip replacement. Components of the device in appropriate location. SOFT TISSUES: No worrisome findings. Expected postoperative soft tissue changes. IMPRESSION: SATISFACTORY POSTOPERATIVE RIGHT HIP. TECHNICAL DOCUMENTATION: JOB ID: [id number] [employer]- All Rights Reserved Reading location - IP/workstation name: [email or web address]
[2019-08-04] MEDS: ASPIRIN 81 MG TABLET, ENT COATED PO SCH (17:11)
[2019-08-04] MEDS: FAMOTIDINE 20 MG TABLET PO SCH (22:32)
[2019-08-04] MEDS: CEFAZOLIN SODIUM 2 GM in DEXTROSE 5%-WATER 100 ML IV SCH (22:33)
[2019-08-04] MEDS: BUPROPION HCL 100 MG TABLET PO SCH (22:35)
[2019-08-05] MEDS: OXYCODONE-ACETAMINOPHEN 5-325 MG TABLET PO PRN ×2 (05:48→11:17)
[2019-08-05] MEDS: NORMAL SALINE 1000 ML 1,000 ML IV PRN (05:49)
[2019-08-05] MEDS: CEFAZOLIN SODIUM 2 GM in DEXTROSE 5%-WATER 100 ML IV SCH ×3 (05:49→21:42)
[2019-08-05] MEDS ORDERED: INFLUENZA QUAD (6MOS+) 2019-20 VAC 0.5 ML SYR IM ONE (08:00)
[2019-08-05 09:00] LABS: HEMATOCRIT 40.1 % (36.0-47.0); HEMOGLOBIN 13.6 g/dL (12.0-15.5); MEAN CORPUSCULAR HEMOGLOBIN 32.1 pg (27.0-33.4); MEAN CORPUSCULAR HGB CONC 33.8 g/dL (32.0-36.0); MEAN CORPUSCULAR VOLUME 95 fl (80-97); PLATELET COUNT 216 10^3/uL (150-450); RED BLOOD COUNT 4.22 10^6/uL (3.72-5.28); RED CELL DISTRIBUTION WIDTH 12.3 % (11.5-14.0); WHITE BLOOD COUNT 11.6 10^3/uL (4.0-10.5)
[2019-08-05 09:15] LABS: ANION GAP 9 (5-19); BLOOD UREA NITROGEN 13 mg/dL (7-20); CALCIUM 9.1 mg/dL (8.4-10.2); CARBON DIOXIDE 22 mmol/L (22-30); CHLORIDE 99 mmol/L (98-107); GLUCOSE 128 mg/dL (75-110); POTASSIUM 3.8 mmol/L (3.6-5.0)
[2019-08-05 09:35] LABS: ABSOLUTE LYMPHOCYTES# (MANUAL) 0.7 10^3/uL (0.5-4.7); ABSOLUTE MONOCYTES # (MANUAL) 1.9 10^3/uL (0.1-1.4); BASOPHILS % (MANUAL) 0 % (0-2); EOSINOPHILS % (MANUAL) 0 % (0-6); LYMPHOCYTES % (MANUAL) 6 % (13-45); MONOCYTES % (MANUAL) 16 % (3-13); SEGMENTED NEUTROPHILS % (MAN) 78 % (42-78); TOTAL CELLS COUNTED 100
[2019-08-05 09:36] LABS: PLATELET COMMENT ADEQUATE
[2019-08-05] MEDS: DOCUSATE SODIUM 100 MG CAPSULE PO SCH ×2 (10:57→22:48)
[2019-08-05] MEDS: LOSARTAN POTASSIUM 50 MG TABLET PO SCH ×2 (10:57→21:42)
[2019-08-05] MEDS: ASPIRIN 81 MG TABLET, ENT COATED PO SCH ×2 (10:57→20:24)
[2019-08-05] MEDS: ENOXAPARIN SODIUM INJ 30 MG/0.3 ML DISP.SYRIN SUBCUT SCH (10:58)
--- NOTE | 2019-08-05 11:02 | PDOC PROGRESS REPORT ---
Subjective Progress Note for:: 08/05/19 Subjective:: 08/04/19 patient was admitted yesterday with a fractured right hip patient is medically stable. Patient is for orthopedic repair today fractured right hip Echocardiogram done today shows no significant cardiac disease normal ejection fracture. Patient will probably have spinal anesthesia. 08/05/2019 She is doing well postop. H&H is stable electrolytes are stable. Urinalysis from yesterday shows leukocytes. His daughter states that her mother has a UTI as documented by culture prior to hospitalization. She currently receiving Ancef for 48 hours. We will ordered a urine culture. Once the Ancef is completed I will probably start her on Keflex Reason For Visit: SUBCAPITAL RIGHT HIP FRACTURE, HYPERTENSION, Physical Exam Vital Signs: Temp Pulse Resp BP Pulse Ox 98.1 F 97 14 150/71 H 96 08/05/19 07:37 08/05/19 07:37 08/05/19 07:37 08/05/19 07:37 08/05/19 07:37 Intake & Output 08/04/19 08/05/19 08/06/19 06:59 06:59 06:59 Intake Total 110 4970 Output Total 220 2890 Balance -110 2080 Weight 53.2 kg 53.4 kg General appearance: PRESENT: no acute distress, other - It looks very well for postop day #1 Respiratory exam: PRESENT: clear to auscultation lisa. ABSENT: rales, rhonchi, wheezes Cardiovascular exam: PRESENT: RRR. ABSENT: diastolic murmur, rubs, systolic murmur Neurological exam: PRESENT: alert, awake, oriented to person, oriented to place, oriented to time, oriented to situation, CN II-XII grossly intact. ABSENT: motor sensory deficit Psychiatric exam: PRESENT: appropriate affect, normal mood. ABSENT: homicidal ideation, suicidal ideation Results Laboratory Results: 08/05/19 08:35 08/05/19 08:35 08/04/19 08/05/19 08/05/19 10:30 08:35 08:35 WBC 11.6 H RBC 4.22 Hgb 13.6 Hct 40.1 MCV 95 MCH 32.1 MCHC 33.8 RDW 12.3 Plt Count 216 Seg Neutrophils % Not Reportable Sodium 130.1 L Potassium 3.8 Chloride 99 Carbon Dioxide 22 Anion Gap 9 BUN 13 Creatinine 0.61 Est GFR ( Amer) > 60 Glucose 128 H Calcium 9.1 Urine Color FLOYD Urine Appearance CLOUDY Urine pH 5.0 Ur Specific [place] 1.023 Urine Protein 30 H Urine Glucose (UA) NEGATIVE Urine Ketones 20 H Urine Blood SMALL H Urine Nitrite NEGATIVE Ur Leukocyte Esterase LARGE H Urine WBC (Auto) 171 Urine RBC (Auto) 8 Impressions: Chest X-Ray 08/03/19 00:00 IMPRESSION: NO ACUTE RADIOGRAPHIC FINDING IN THE CHEST. Hip/Pelvis X-Ray 08/04/19 00:00 IMPRESSION: SATISFACTORY POSTOPERATIVE RIGHT HIP. Assessment and Plan - Diagnosis (1) Subcapital fracture of right hip Qualifiers: Encounter type: initial encounter Fracture type: closed Qualified Code(s): S72.011A - Unspecified intracapsular fracture of right femur, initial encounter for closed fracture Is this a current diagnosis for this admission?: Yes (2) Hypertension Is this a current diagnosis for this admission?: Yes (3) Hyperlipidemia Is this a current diagnosis for this admission?: Yes (4) Right inguinal hernia Is this a current diagnosis for this admission?: Yes (5) Fall Qualifiers: Encounter type: initial encounter Qualified Code(s): W19.XXXA - Unspecified fall, initial encounter Is this a current diagnosis for this admission?: Yes (6) UTI (urinary tract infection) Is this a current diagnosis for this admission?: Yes - Plan Summary Summary: 08/03/2019 She will be seen by orthopedic surgery and is tentatively plan for repair of right hip fracture tomorrow morning.. With the information I have so far patient appears to be medically clear for general anesthesia. Patient has a right bundle branch block on her EKG with no previous EKGs to compare to. Patient denies previous cardiac history. We will follow the patient medically with orthopedics. 08/04/2019 patient had a good night with adequate pain management on 1 Percocet only. Patient for repair of fractured right hip today around noon. Echocardiogram done this morning shows a normal ejection fracture and no sign ificant cardiac disease 08/05/2019 No signs are stable. Patient is hemodynamically stable. Urine culture was ordered today. Told patient that orthopedics will be dictating timing of the discharge and placement at time of discharge - Time Time Spent with patient: 25-34 minutes
[2019-08-05] MEDS ORDERED: (PENDING PHARMACY ID) (Mirabegron [Myrbetriq] 50 MG) PO SCH (11:15)
[2019-08-05] MEDS ORDERED: BISACODYL 10 MG SUPP.RECT PR ONE (18:00)
--- NOTE | 2019-08-05 18:04 | PDOC PROGRESS REPORT ---
Subjective Progress Note for:: 08/05/19 Subjective:: I have discussed the entirety of the patient's day with the patient's daughter who accompanies her. The patient apparently had quite a good day with therapy and was able to get out of bed mostly unassisted to a standing position. Unfortunately she later developed nausea and was given Phenergan which has resulted in mental confusion. It is not entirely clear if the nausea was brought on by narcotic pain medication. She had only required and received 1 Percocet 5/325 prior to working with therapy. The patient's daughter relates that she had been called by her primary care physician and told that a urine culture performed earlier in the week had indicated that she had a urinary tract infection prior to admission. Urinalysis performed today is consistent with a urinary tract infection. She is currently on intravenous Ancef which should cover most common causes of UTI. Urine culture is pending. Reason For Visit: SUBCAPITAL RIGHT HIP FRACTURE, HYPERTENSION, Physical Exam Vital Signs: Temp Pulse Resp BP Pulse Ox 97.9 F 89 16 128/60 H 92 08/05/19 15:12 08/05/19 15:12 08/05/19 15:12 08/05/19 15:12 08/05/19 15:12 Intake & Output 08/04/19 08/05/19 08/06/19 06:59 06:59 06:59 Intake Total 110 4970 580 Output Total 220 2890 Balance -110 2080 580 Weight 53.2 kg 53.4 kg General appearance: PRESENT: other - The patient does follow commands however she is confused. Per the daughter's report this confusion was associated with administration of Phenergan. Head exam: PRESENT: atraumatic, normocephalic Eye exam: ABSENT: conjunctival injection, conjunctiva pink, conjunctiva pale, EOMI, nystagmus, periorbital swelling, PERRLA, scleral icterus, other Mouth exam: PRESENT: moist, tongue midline Neck exam: ABSENT: carotid bruit, JVD, lymphadenopathy, thyromegaly Respiratory exam: PRESENT: clear to auscultation lisa. ABSENT: rales, rhonchi, wheezes Cardiovascular exam: PRESENT: RRR. ABSENT: diastolic murmur, rubs, systolic murmur Pulses: PRESENT: +1 pedal pulses bilateral Vascular exam: PRESENT: normal capillary refill GI/Abdominal exam: PRESENT: normal bowel sounds, soft. ABSENT: distended, guarding, mass, organolmegaly, rebound, tenderness Rectal exam: PRESENT: deferred Extremities exam: PRESENT: full ROM. ABSENT: calf tenderness, clubbing, pedal edema Musculoskeletal exam: PRESENT: other - The surgical dressing is intact. There is scant bloody drainage present. There is no discomfort with internal and external rotation of the right hip. There is no discomfort with range of motion of the knee ankle and foot. Neurological exam: PRESENT: altered - The patient is confused following the administration of Phenergan. Results Laboratory Results: 08/05/19 08:35 08/05/19 08:35 08/05/19 08/05/19 08:35 08:35 WBC 11.6 H RBC 4.22 Hgb 13.6 Hct 40.1 MCV 95 MCH 32.1 MCHC 33.8 RDW 12.3 Plt Count 216 Seg Neutrophils % Not Reportable Sodium 130.1 L Potassium 3.8 Chloride 99 Carbon Dioxide 22 Anion Gap 9 BUN 13 Creatinine 0.61 Est GFR ( Amer) > 60 Glucose 128 H Calcium 9.1 Impressions: Chest X-Ray 08/03/19 00:00 IMPRESSION: NO ACUTE RADIOGRAPHIC FINDING IN THE CHEST. Hip/Pelvis X-Ray 08/04/19 00:00 IMPRESSION: SATISFACTORY POSTOPERATIVE RIGHT HIP. Assessment & Plan - Diagnosis (1) Subcapital fracture of right hip Qualifiers: Encounter type: initial encounter Fracture type: closed Qualified Code(s): S72.011A - Unspecified intracapsular fracture of right femur, initial encounter for closed fracture Is this a current diagnosis for this admission?: Yes - Time Time Spent with patient: 25-34 minutes Medications reviewed and adjusted accordingly: Yes - I have discontinued Phenergan and Percocet. I have instituted tramadol whi Anticipated discharge: SNF Within: within 48 hours - Plan Summary Plan Summary: 1. Confusion: The patient was doing quite well earlier today until she was provided Phenergan. I have discontinued Phenergan as well as all narcotic analgesics. I have written orders for tramadol which she takes at home. I have also written orders for ibuprofen as needed. 2. Urinary tract infection: Urinalysis is consistent with a urinary tract infection. The patient's primary care provider has indicated that this infection was present prior to hospital admission. She is currently on intravenous Ancef. Urine cultures are pending. 3. DVT prophylaxis: The patient is on aspirin for DVT prophylaxis. Due to the patient's advanced age and small stature, I believe she is at relatively high risk for adverse complications from low molecular weight heparin. 4. Right hip subcapital fracture: The patient is postoperative day #1 status post right hip hemiarthroplasty. The hip is quite stable and she is doing well with therapy. I anticipate discharge to a [facility] facility on Wednesday as long as there are no more medical complications. She is clear from an orthopedic standpoint for discharge to a [facility] facility once her medical condition has stabilized. I have written orders for a dressing change on Wednesday prior to her discharge. I have discussed with the daughter that I would like to see her 2 weeks following discharge for a wound evaluation and staple removal.
[2019-08-05] MEDS: POLYETHYLENE GLYCOL 3350 POWDER 17 GM/1 PACKET PO PRN (20:24)
[2019-08-05] MEDS: BUPROPION HCL 100 MG TABLET PO SCH (21:43)
[2019-08-05] MEDS: FAMOTIDINE 20 MG TABLET PO SCH (21:43)
[2019-08-06] MEDS: NORMAL SALINE 1000 ML 1,000 ML IV PRN ×2 (00:58→20:49)
[2019-08-06] MEDS: CEFAZOLIN SODIUM 2 GM in DEXTROSE 5%-WATER 100 ML IV SCH ×2 (05:38→13:27)
[2019-08-06] MEDS ORDERED: BISACODYL 10 MG SUPP.RECT PR ONE (06:00)
--- NOTE | 2019-08-06 10:06 | PDOC PROGRESS REPORT ---
Subjective Progress Note for:: 08/06/19 Subjective:: 08/04/19 patient was admitted yesterday with a fractured right hip patient is medically stable. Patient is for orthopedic repair today fractured right hip Echocardiogram done today shows no significant cardiac disease normal ejection fracture. Patient will probably have spinal anesthesia. 08/05/2019 She is doing well postop. H&H is stable electrolytes are stable. Urinalysis from yesterday shows leukocytes. His daughter states that her mother has a UTI as documented by culture prior to hospitalization. She currently receiving Ancef for 48 hours. We will ordered a urine culture. Once the Ancef is completed I will probably start her on Keflex 08/06/2019 She is smiling sitting up in bed eating breakfast. Postop day #2 temp 99.2, also 99 which is not unusual for her, pressure 154/95. This is been fluctuating somewhat and I suspect is due to pain. Only on Cozaar 100 mg daily and I would not adjust it while she is in the hospital unless it goes much higher Reason For Visit: SUBCAPITAL RIGHT HIP FRACTURE, HYPERTENSION, Physical Exam Vital Signs: Temp Pulse Resp BP Pulse Ox 99.2 F 99 18 154/95 H 96 08/06/19 07:20 08/06/19 07:20 08/06/19 07:20 08/06/19 07:20 08/06/19 07:20 Intake & Output 08/05/19 08/06/19 08/07/19 06:59 06:59 06:59 Intake Total 4970 2218 Output Total 2890 Balance 2080 2218 Weight 53.4 kg 61.7 kg General appearance: PRESENT: no acute distress Respiratory exam: PRESENT: clear to auscultation lisa. ABSENT: rales, rhonchi, wheezes Cardiovascular exam: PRESENT: RRR. ABSENT: diastolic murmur, rubs, systolic murmur Musculoskeletal exam: PRESENT: other - Deferred to orthopedics Neurological exam: PRESENT: alert, awake, oriented to person, oriented to place, oriented to time, oriented to situation, CN II-XII grossly intact. ABSENT: motor sensory deficit Psychiatric exam: PRESENT: appropriate affect, normal mood. ABSENT: homicidal ideation, suicidal ideation Results Laboratory Results: 08/05/19 08:35 08/05/19 08:35 Impressions: Chest X-Ray 08/03/19 00:00 IMPRESSION: NO ACUTE RADIOGRAPHIC FINDING IN THE CHEST. Hip/Pelvis X-Ray 08/04/19 00:00 IMPRESSION: SATISFACTORY POSTOPERATIVE RIGHT HIP. Assessment and Plan - Diagnosis (1) Subcapital fracture of right hip Qualifiers: Encounter type: initial encounter Fracture type: closed Qualified Code(s): S72.011A - Unspecified intracapsular fracture of right femur, initial encounter for closed fracture Is this a current diagnosis for this admission?: Yes (2) Hypertension Is this a current diagnosis for this admission?: Yes (3) Hyperlipidemia Is this a current diagnosis for this admission?: Yes (4) Right inguinal hernia Is this a current diagnosis for this admission?: Yes (5) Fall Qualifiers: Encounter type: initial encounter Qualified Code(s): W19.XXXA - Unspecified fall, initial encounter Is this a current diagnosis for this admission?: Yes (6) UTI (urinary tract infection) Is this a current diagnosis for this admission?: Yes - Plan Summary Summary: 08/03/2019 She will be seen by orthopedic surgery and is tentatively plan for repair of right hip fracture tomorrow morning.. With the information I have so far patient appears to be medically clear for general anesthesia. Patient has a right bu ndle branch block on her EKG with no previous EKGs to compare to. Patient denies previous cardiac history. We will follow the patient medically with orthopedics. 08/04/2019 patient had a good night with adequate pain management on 1 Percocet only. Patient for repair of fractured right hip today around noon. Echocardiogram done this morning shows a normal ejection fracture and no significant cardiac disease 08/05/2019 No signs are stable. Patient is hemodynamically stable. Urine culture was ordered today. Told patient that orthopedics will be dictating timing of the discharge and placement at time of discharge 08/06/2019 Today patient got a Percocet and then shortly thereafter received Phenergan 12.5 mg. She had a decrease in her level of consciousness secondary to the combination and timing of the medication. The future if patient needs something for nausea or vomiting would probably recommend Reglan, or a lower dose of Phenergan such as 6.25. She is having very little postop pain. Labs all appear to be stable. When patient is full of the IV Ancef we will switch her to p.o. Keflex 250 3 times daily for 5 days UTI. Urine culture is pending - Time Time Spent with patient: 25-34 minutes
[2019-08-06] MEDS: LOSARTAN POTASSIUM 50 MG TABLET PO SCH ×2 (11:11→22:03)
[2019-08-06] MEDS: IBUPROFEN 400 MG TABLET PO PRN ×2 (11:11→22:04)
[2019-08-06] MEDS: POLYETHYLENE GLYCOL 3350 POWDER 17 GM/1 PACKET PO PRN (11:11)
[2019-08-06] MEDS: ASPIRIN 81 MG TABLET, ENT COATED PO SCH ×2 (11:11→17:39)
[2019-08-06] MEDS: ENOXAPARIN SODIUM INJ 30 MG/0.3 ML DISP.SYRIN SUBCUT SCH (11:12)
[2019-08-06] MEDS: DOCUSATE SODIUM 100 MG CAPSULE PO SCH ×2 (11:12→17:39)
[2019-08-06] MEDS: TRAMADOL HCL 50 MG TABLET PO PRN (13:32)
--- NOTE | 2019-08-06 15:31 | PDOC PROGRESS REPORT ---
Subjective Progress Note for:: 08/06/19 Subjective:: The patient is resting comfortably. I discussed the patient's status with her daughter who accompanies her. Apparently her mental status cleared last evening and she has been alert, oriented, and appropriate ever since. The patient worked with therapy today and was apparently able to take several steps. There are no complaints by the patient or family. Reason For Visit: SUBCAPITAL RIGHT HIP FRACTURE, HYPERTENSION, Physical Exam Vital Signs: Temp Pulse Resp BP Pulse Ox 98.3 F 97 18 148/78 H 97 08/06/19 11:42 08/06/19 11:42 08/06/19 11:42 08/06/19 11:42 08/06/19 11:42 Intake & Output 08/05/19 08/06/19 08/07/19 06:59 06:59 06:59 Intake Total 4970 2218 500 Output Total 2890 Balance 2080 2218 500 Weight 53.4 kg 61.7 kg General appearance: PRESENT: no acute distress, well-developed, well-nourished Head exam: PRESENT: atraumatic, normocephalic Eye exam: PRESENT: conjunctiva pink, EOMI, PERRLA. ABSENT: scleral icterus Neck exam: ABSENT: carotid bruit, JVD, lymphadenopathy, thyromegaly Respiratory exam: PRESENT: clear to auscultation lisa. ABSENT: rales, rhonchi, wheezes Cardiovascular exam: PRESENT: RRR. ABSENT: diastolic murmur, rubs, systolic murmur Pulses: PRESENT: +1 pedal pulses bilateral GI/Abdominal exam: PRESENT: soft Rectal exam: PRESENT: deferred Extremities exam: PRESENT: other - Surgical dressing is intact. There is no discomfort with gentle motion of the right hip. The patient has active motion of the knee ankle and foot. Sensation is intact to touch. Neurological exam: PRESENT: alert, awake, oriented to person, oriented to place, oriented to time, oriented to situation, CN II-XII grossly intact. ABSENT: motor sensory deficit Results Laboratory Results: 08/05/19 08:35 08/05/19 08:35 Impressions: Chest X-Ray 08/03/19 00:00 IMPRESSION: NO ACUTE RADIOGRAPHIC FINDING IN THE CHEST. Hip/Pelvis X-Ray 08/04/19 00:00 IMPRESSION: SATISFACTORY POSTOPERATIVE RIGHT HIP. Assessment & Plan - Diagnosis (1) Subcapital fracture of right hip Qualifiers: Encounter type: initial encounter Fracture type: closed Qualified Code(s): S72.011A - Unspecified intracapsular fracture of right femur, initial encounter for closed fracture Is this a current diagnosis for this admission?: Yes - Time Time Spent with patient: 15-24 minutes Anticipated discharge: SNF Within: within 24 hours - Plan Summary Plan Summary: Postoperative day #2 status post right hip hemiarthroplasty The patient is doing quite well. Mental status has cleared now that she is off narcotic analgesics and antiemetics. Urine cultures are pending. Today is her last day of intravenous Ancef. She is clear from an orthopedic standpoint for discharge. Patient should follow-up in my office 2 weeks following discharge for wound check and staple removal.
[2019-08-06] MEDS: FAMOTIDINE 20 MG TABLET PO SCH (22:03)
[2019-08-06] MEDS: BUPROPION HCL 100 MG TABLET PO SCH (22:03)
--- NOTE | 2019-08-07 10:10 | PDOC PROGRESS REPORT ---
Subjective Progress Note for:: 08/07/19 Subjective:: 08/04/19 patient was admitted yesterday with a fractured right hip patient is medically stable. Patient is for orthopedic repair today fractured right hip Echocardiogram done today shows no significant cardiac disease normal ejection fracture. Patient will probably have spinal anesthesia. 08/05/2019 She is doing well postop. H&H is stable electrolytes are stable. Urinalysis from yesterday shows leukocytes. His daughter states that her mother has a UTI as documented by culture prior to hospitalization. She currently receiving Ancef for 48 hours. We will ordered a urine culture. Once the Ancef is completed I will probably start her on Keflex 08/06/2019 She is smiling sitting up in bed eating breakfast. Postop day #2 temp 99.2, also 99 which is not unusual for her, pressure 154/95. This is been fluctuating somewhat and I suspect is due to pain. Only on Cozaar 100 mg daily and I would not adjust it while she is in the hospital unless it goes much higher 08/07/2019 Postop day 3. Surgeon has released the patient to be discharged. Patient is medically stable. Awaiting placement. Patient will need to go home on 5 days of Keflex. Blood pressure is well controlled on her Cozaar Reason For Visit: SUBCAPITAL RIGHT HIP FRACTURE, HYPERTENSION, Physical Exam Vital Signs: Temp Pulse Resp BP Pulse Ox 97.3 F 81 19 131/59 H 98 08/07/19 07:29 08/07/19 07:29 08/07/19 07:29 08/07/19 07:29 08/07/19 07:29 Intake & Output 08/06/19 08/07/19 08/08/19 06:59 06:59 06:59 Intake Total 2218 2303 Balance 2218 2303 Weight 61.7 kg 63.7 kg Results Laboratory Results: 08/05/19 08:35 08/05/19 08:35 Impressions: Chest X-Ray 08/03/19 00:00 IMPRESSION: NO ACUTE RADIOGRAPHIC FINDING IN THE CHEST. Hip/Pelvis X-Ray 08/04/19 00:00 IMPRESSION: SATISFACTORY POSTOPERATIVE RIGHT HIP. Assessment and Plan - Diagnosis (1) Subcapital fracture of right hip Qualifiers: Encounter type: initial encounter Fracture type: closed Qualified Code(s): S72.011A - Unspecified intracapsular fracture of right femur, initial encounter for closed fracture Is this a current diagnosis for this admission?: Yes (2) Hypertension Is this a current diagnosis for this admission?: Yes (3) Hyperlipidemia Is this a current diagnosis for this admission?: Yes (4) Right inguinal hernia Is this a current diagnosis for this admission?: Yes (5) Fall Qualifiers: Encounter type: initial encounter Qualified Code(s): W19.XXXA - Unspecified fall, initial encounter Is this a current diagnosis for this admission?: Yes (6) UTI (urinary tract infection) Is this a current diagnosis for this admission?: Yes - Plan Summary Summary: 08/03/2019 She will be seen by orthopedic surgery and is tentatively plan for repair of right hip fracture tomorrow morning.. With the information I have so far patient appears to be medically clear for general anesthesia. Patient has a right bundle branch block on her EKG with no previous EKGs to compare to. Patient denies previous cardiac history. We will follow the patient medically with orthopedics. 08/04/2019 patient had a good night with adequate pain management on 1 Percocet only. Patient for repair of fractured right hip today around noon. Echocardiogram done this morning shows a normal ejection fracture and no significant cardiac disease 08/05/2019 No signs are stable. Patient is hemodynamically stable. Urine culture was ordered today. Told patient that orthopedics will be dictating timing of the discharge and placement at time of discharge 08/06/2019 Today patient got a Percocet and then shortly thereafter received Phenergan 12.5 mg. She had a decrease in her level of consciousness secondary to the combination and timing of the medication. The future if patient needs something for nausea or vomiting would probably recommend a lower dose of Phenergan such as 6.25. Reglan may interfere with her Wellbutrin. She is having very little postop pain. Labs all appear to be stable. When patient is full of the IV Ancef we will switch her to p.o. Keflex 250 3 times daily for 5 days UTI. Urine culture is pending 08/07/2019 Urine culture here at the hospital still pending but patient had a positive urine culture from her primary care provider before she was admitted Will need to go home on Keflex for 5 days. If need be she can tolerate a low dose of Phenergan 6.25 Patient was originally admitted for a hip fracture we were asked to fit patient for medicine supervision - Time Time Spent with patient: 25-34 minutes
[2019-08-07] MEDS: DOCUSATE SODIUM 100 MG CAPSULE PO SCH (10:11)
[2019-08-07] MEDS: ASPIRIN 81 MG TABLET, ENT COATED PO SCH (10:11)
[2019-08-07] MEDS: LOSARTAN POTASSIUM 50 MG TABLET PO SCH (10:11)
[2019-08-07] MEDS: BUPROPION HCL 100 MG TABLET PO SCH (10:11)
[2019-08-07] MEDS: ENOXAPARIN SODIUM INJ 30 MG/0.3 ML DISP.SYRIN SUBCUT SCH (10:12)
--- NOTE | 2019-08-07 11:54 | PDOC TRANSFER SUMMARY ---
Impression - Admit/DC Date/PCP Admission Date/Primary Care Provider: 08/03/19 17:55 BASSEM CHAMBERS JR, MD Discharge Date: 08/07/19 - Discharge Diagnosis (1) Subcapital fracture of right hip Is this a current diagnosis for this admission?: Yes (2) Hypertension Is this a current diagnosis for this admission?: Yes (3) Hyperlipidemia Is this a current diagnosis for this admission?: Yes (4) Right inguinal hernia Is this a current diagnosis for this admission?: Yes (5) Fall Is this a current diagnosis for this admission?: Yes (6) UTI (urinary tract infection) Is this a current diagnosis for this admission?: Yes (7) Hypertension Is this a current diagnosis for this admission?: Yes (8) Depression Is this a current diagnosis for this admission?: Yes - Assessment Summary: 08/03/2019 She will be seen by orthopedic surgery and is tentatively plan for repair of right hip fracture tomorrow morning.. With the information I have so far patient appears to be medically clear for general anesthesia. Patient has a right bundle branch block on her EKG with no previous EKGs to compare to. Patient denies previous cardiac history. We will follow the patient medically with orthopedics. 08/04/2019 patient had a good night with adequate pain management on 1 Percocet only. Patient for repair of fractured right hip today around noon. Echocardiogram done this morning shows a normal ejection fracture and no significant cardiac disease 08/05/2019 No signs are stable. Patient is hemodynamically stable. Urine culture was ordered today. Told patient that orthopedics will be dictating timing of the discharge and placement at time of discharge 08/06/2019 Today patient got a Percocet and then shortly thereafter received Phenergan 12.5 mg. She had a decrease in her level of consciousness secondary to the combination and timing of the medication. The future if patient needs something for nausea or vomiting would probably recommend a lower dose of Phenergan such as 6.25. Reglan may interfere with her Wellbutrin. She is having very little postop pain. Labs all appear to be stable. When patient is full of the IV Ancef we will switch her to p.o. Keflex 250 3 times daily for 5 days UTI. Urine culture is pending 08/07/2019 Urine culture here at the hospital still pending but patient had a positive urine culture from her primary care provider before she was admitted Will need to go home on Keflex for 5 days. If need be she can tolerate a low dose of Phenergan 6.25 Patient was originally admitted for a hip fracture we were asked to fit patient for medicine supervision She was admitted for fractured right hip this was repaired on 08/04/2019 Dr. Russo. Patient is done well postop having no complications patient is being treated for UTI that she had prior to admission. Patient was released from the care of orthopedics on postop day 2. Patient needs to follow-up with orthopedics in 2 weeks for wound check and staple removal. - Additional Information Resuscitation Status: Full Code Discharge Diet: As Tolerated Discharge Activity: Balance Activity w/Rest Referrals: TRISH BAXTER,BASSEM Stephens MD [Primary Care Provider] - Follow up as needed Prescriptions: Cephalexin Monohydrate [Keflex 250 mg Capsule] 250 mg PO Q8 #15 capsule Home Medications: Bupropion HCl [Bupropion Xl] 150 mg PO Q12 08/02/19 Losartan Potassium 100 mg PO DAILY 08/02/19 Zolpidem Tartrate [Ambien 5 mg Tablet] 5 mg PO HSP PRN MDD 10 MG 08/02/19 Mirabegron [Myrbetriq] 50 mg PO DAILY 08/03/19 Oxycodone HCl/Acetaminophen [Percocet 5-325 mg Tablet] 1 tab PO QIDP PRN 08/03/19 Tramadol HCl [Ultram 50 mg Tablet] 50 mg PO Q6HP PRN 08/03/19 Aspirin [Ecotrin 81 mg EC Tablet] 81 mg PO BID tabec 08/07/19 Cephalexin Monohydrate [Keflex 250 mg Capsule] 250 mg PO Q8 #15 capsule 08/07/19 History of Present Illiness History of Present Illness: ROYCE PIERCE is a 89 year old female who was admitted through the emergency room today on 08/03/2019 for right subcapital hip fracture. The history begins Wednesday night around 6 PM when the patient tripped and fell fracturing her right hip. According to the daughter EMS came in evidently after some discussion did not feel like the patient needed to be transported to the ER the patient's daughter stated that yesterday morning when she got up her right hip was still hurting her severely so she did come to the emergency room and they treated her for right leg pain but no x-rays were done of the right hip. I sent her home with a right leg splint.. Last night she was hurting so bad she did not have adequate pain medication so her primary care provider Dr. Ana burgos got her some Percocet. The daughter states that she took 1 about every 4-6 hours with good relief of her right hip pain. Morning her right hip was still hurting so bad that they came back to the emergency room and today's x-ray of the right hip shows a subcapital right hip fracture. Patient's other medical conditions include hypertension, she has what sounds to be a reducible right inguinal hernia, either anxiety or depression, and hyperlipidemia. Patient has had 5 vaginal deliveries in her lifetime, was living alone up until recently but now has moved in with her daughter and had a good quality of life. Surgery plans on repairing the right hip tomorrow they will discuss risk and benefits with the patient and family. I did tell the patient and her daughter that at at the age of 89 she does carry a higher risk of for general anesthesia. They were aware of this and had their questions answered. Physical Exam Vital Signs: Temp Pulse Resp BP Pulse Ox 97.3 F 81 19 131/59 H 98 08/07/19 07:29 08/07/19 07:29 08/07/19 07:29 08/07/19 07:29 08/07/19 07:29 Intake & Output 08/06/19 08/07/19 08/08/19 06:59 06:59 06:59 Intake Total 2218 2303 Balance 2218 2303 Weight 61.7 kg 63.7 kg Results Laboratory Results: WBC 11.6 10^3/uL (4.0-10.5) H 08/05/19 08:35 RBC 4.22 10^6/uL (3.72-5.28) 08/05/19 08:35 Hgb 13.6 g/dL (12.0-15.5) 08/05/19 08:35 Hct 40.1 % (36.0-47.0) 08/05/19 08:35 MCV 95 fl (80-97) 08/05/19 08:35 MCH 32.1 pg (27.0-33.4) 08/05/19 08:35 MCHC 33.8 g/dL (32.0-36.0) 08/05/19 08:35 RDW 12.3 % (11.5-14.0) 08/05/19 08:35 Plt Count 216 10^3/uL (150-450) 08/05/19 08:35 Lymph % (Auto) Not Reportable 08/05/19 08:35 [place] % (Auto) Not Reportable 08/05/19 08:35 Eos % (Auto) Not Reportable 08/05/19 08:35 Baso % (Auto) Not Reportable 08/05/19 08:35 Absolute Neuts (auto) Not Reportable 08/05/19 08:35 Absolute Lymphs (auto) Not Reportable 08/05/19 08:35 Absolute Monos (auto) Not Reportable 08/05/19 08:35 Absolute Eos (auto) Not Reportable 08/05/19 08:35 Absolute Basos (auto) Not Reportable 08/05/19 08:35 Total Counted 100 08/05/19 08:35 Seg Neutrophils % Not Reportable 08/05/19 08:35 Seg Neuts % (Manual) 78 % (42-78) 08/05/19 08:35 Lymphocytes % (Manual) 6 % (13-45) L 08/05/19 08:35 Monocytes % (Manual) 16 % (3-13) H 08/05/19 08:35 Eosinophils % (Manual) 0 % (0-6) 08/05/19 08:35 Basophils % (Manual) 0 % (0-2) 08/05/19 08:35 Abs Neuts (Manual) 9.0 10^3/uL (1.7-8.2) H 08/05/19 08:35 Abs Lymphs (Manual) 0.7 10^3/uL (0.5-4.7) 08/05/19 08:35 Abs Monocytes (Manual) 1.9 10^3/uL (0.1-1.4) H 08/05/19 08:35 Absolute Eos (Manual) 0.0 10^3/uL (0.0-0.6) 08/05/19 08:35 Abs Basophils (Manual) 0.0 10^3/uL (0.0-0.2) 08/05/19 08:35 Platelet Comment ADEQUATE 08/05/19 08:35 PT 13.5 SEC (11.4-15.4) 08/03/19 17:07 INR 1.02 08/03/19 17:07 APTT 34.4 SEC (23.5-35.8) 08/03/19 17:07 Sodium 130.1 mmol/L (137-145) L 08/05/19 08:35 Potassium 3.8 mmol/L (3.6-5.0) 08/05/19 08:35 Chloride 99 mmol/L (98-107) 08/05/19 08:35 Carbon Dioxide 22 mmol/L (22-30) 08/05/19 08:35 Anion Gap 9 (5-19) 08/05/19 08:35 BUN 13 mg/dL (7-20) 08/05/19 08:35 Creatinine 0.61 mg/dL (0.52-1.25) 08/05/19 08:35 Est GFR ( Amer) > 60 (>60) 08/05/19 08:35 Est GFR (Non-Af Amer) Cancelled 08/03/19 17:07 Est GFR (MDRD) Non-Af > 60 (>60) 08/05/19 08:35 Glucose 128 mg/dL (75-110) H 08/05/19 08:35 Calcium 9.1 mg/dL (8.4-10.2) 08/05/19 08:35 Total Bilirubin 1.5 mg/dL (0.2-1.3) H 08/04/19 03:45 Direct Bilirubin 0.2 mg/dL (0.0-0.4) 08/04/19 03:45 Neonat Total Bilirubin Not Reportable 08/04/19 03:45 Neonat Direct Bilirubin Not Reportable 08/04/19 03:45 Neonat Indirect Bili Not Reportable 08/04/19 03:45 AST 22 U/L (14-36) 08/04/19 03:45 ALT 12 U/L (<35) 08/04/19 03:45 Alkaline Phosphatase 76 U/L (38-126) 08/04/19 03:45 Total Protein 6.4 g/dL (6.3-8.2) 08/04/19 03:45 Albumin 3.5 g/dL (3.5-5.0) 08/04/19 03:45 EGFR Cancelled 08/03/19 17:07 Urine Color FLOYD 08/04/19 10:30 Urine Appearance CLOUDY 08/04/19 10:30 Urine pH 5.0 (5.0-9.0) 08/04/19 10:30 Ur Specific [place] 1.023 08/04/19 10:30 Urine Protein 30 mg/dL (NEGATIVE) H 08/04/19 10:30 Urine Glucose (UA) NEGATIVE mg/dL (NEGATIVE) 08/04/19 10:30 Urine Ketones 20 mg/dL (NEGATIVE) H 08/04/19 10:30 Urine Blood SMALL (NEGATIVE) H 08/04/19 10:30 Urine Nitrite NEGATIVE (NEGATIVE) 08/04/19 10:30 Urine Bilirubin NEGATIVE (NEGATIVE) 08/04/19 10:30 Urine Urobilinogen 2.0 mg/dL (<2.0) H 08/04/19 10:30 Ur Leukocyte Esterase LARGE (NEGATIVE) H 08/04/19 10:30 Urine WBC (Auto) 171 /HPF 08/04/19 10:30 Urine RBC (Auto) 8 /HPF 08/04/19 10:30 Urine Bacteria (Auto) 3+ /HPF 08/04/19 10:30 Urine WBC Clumps FEW /HPF 08/04/19 10:30 Squamous Epi Cells Auto 9 /HPF 08/04/19 10:30 U Non-Squamous Epis Auto 3 /HPF 08/04/19 10:30 Urine Mucus (Auto) RARE /LPF 08/04/19 10:30 Urine Ascorbic Acid NEGATIVE (NEGATIVE) 08/04/19 10:30 Impressions: Chest X-Ray 08/03/19 00:00 IMPRESSION: NO ACUTE RADIOGRAPHIC FINDING IN THE CHEST. Hip/Pelvis X-Ray 08/03/19 00:00 IMPRESSION: Subcapital right hip fracture. Hip/Pelvis X-Ray 08/04/19 00:00 IMPRESSION: SATISFACTORY POSTOPERATIVE RIGHT HIP. Stroke Is this a Stroke Patient?: No Acute Heart Failure - Is this a Heart Failure Patient?: No
[2019-08-07 15:44] VITALS: BP 152/86
[2019-08-07] MEDS: TRAMADOL HCL 50 MG TABLET PO PRN (16:58)
== END 2019-08-07 17:15 | DRG 470 ==
LOC: ER 15:21 → EH 17:55 → 4W 18:50
PROVIDERS: ADMIT Internal Medicine; ATTEND Internal Medicine
PROC: 0SRR0JZ Replacement of Right Hip Joint, Femoral Surface with Synthetic Substitute, Open Approach (ICD-10-PCS; principal; 2019-08-04 11:30)
PROC: 3E02340 Introduction of Influenza Vaccine into Muscle, Percutaneous Approach (ICD-10-PCS; 2019-08-07)
DX: S72.011A Unspecified intracapsular fracture of right femur, initial encounter for closed fracture (principal); N39.0 Urinary tract infection, site not specified; W18.30XA Fall on same level, unspecified, initial encounter; E78.5 Hyperlipidemia, unspecified; I10 Essential (primary) hypertension; K40.90 Unilateral inguinal hernia, without obstruction or gangrene, not specified as recurrent; F32.9 Major depressive disorder, single episode, unspecified; I45.10 Unspecified right bundle-branch block; M21.371 Foot drop, right foot; M10.9 Gout, unspecified; Z79.82 Long term (current) use of aspirin; Z79.899 Other long term (current) drug therapy; Z23 Encounter for immunization
CPT/HCPCS: 01210; 36415; 71045; 80048; 80053; 81001; 85025; 85610; 85730; 87086; 88304; 88311; 90686; 93005; 93010; 93306; C1776; C9290; J0690; J1650; J2250; J2370; J2550; J2704; J3010; J3490; J7030; J7060